=== PATIENT | female | born 1970 | race Caucasian/White ===

== ENCOUNTER 2019-04-17 05:33 | Emergency (ER) | payer BC ==
[2019-04-17] MEDS ORDERED: Ondansetron INJ* 2 MG/ML VIAL IV ONE (05:49)
[2019-04-17] MEDS ORDERED: NS 0.9% 1000 ML** 2,000 ML IV ONE (05:49)
[2019-04-17] MEDS ORDERED: Ketorolac INJ* 30 MG/ML 1 ML VIAL IV PUSH ONE (05:49)
--- NOTE | 2019-04-17 05:58 | ED ---
GI/ HPI - HPI Summary HPI Summary: 48 year old female presents with nausea vomiting diarrhea since yesterday. She states she's been having generalized abdominal pain. She did not eat anything different. She has not been able to keep any food down. No one else is sick. No previous abdominal surgeries. Admits to occasional fevers and chills. No chest pain or shortness breath. No cough. No urinary symptoms. no blood in stool. Has no medical conditions. no recent antibiotic usage. diarrhea has been improving. - History of Current Complaint Chief Complaint: EDNauseaVomitDiarrh Time Seen by Provider: 04/17/19 05:43 Stated Complaint: NAUSEA/VOMITING PER PT Hx Last Menstrual Period: 07/29/12 Pain Intensity: 8 - Allergy/Home Medications Allergies/Adverse Reactions: Allergies Allergy/AdvReac Type Severity Reaction Status Date / Time No Known Allergies Allergy Verified 04/17/19 05:34 PMH/Surg Hx/FS Hx/Imm Hx Endocrine/Hematology History: Reports: Hx Thyroid Disease - removed Denies: Hx Diabetes Cardiovascular History: Denies: Hx Congestive Heart Failure, Hx Hypertension, Hx Pacemaker/ICD, Other Cardiovascular Problems/Disorders Respiratory History: Denies: Hx Asthma, Hx Chronic Obstructive Pulmonary Disease (COPD), Other Respiratory Problems/Disorders GI History: Denies: Hx Ulcer History: Denies: Hx Renal Disease Musculoskeletal History: Denies: Hx Rheumatoid Arthritis, Hx Osteoporosis, Hx Scoliosis Sensory History: Denies: Hx Hearing Aid Neurological History: Denies: Hx Headaches, Other Neuro Impairments/Disorders Psychiatric History: Denies: Hx Panic Disorder - Cancer History Hx Chemotherapy: No Hx Radiation Therapy: No - Surgical History Surgery Procedure, Year, and Place: PARTAIL THYROIDECTOMY. VARICOSE [facility] Infectious Disease History: No Infectious Disease History: Denies: Hx Hepatitis, Hx Human Immunodeficiency Virus (HIV), Traveled Outside the [place] in Last 30 Days - Family History Known Family History: Positive: Non-Contributory - Social History Alcohol Use: Rare Substance Use Type: Reports: None Hx Tobacco Use: No Smoking Status (MU): Never Smoked Tobacco Review of Systems Positive: Fever Negative: Chest Pain Negative: Shortness Of Breath Positive: Abdominal Pain, Vomiting, Diarrhea, Nausea All Other Systems Reviewed And Are Negative: Yes Physical Exam Triage Information Reviewed: Yes Vital Signs On Initial Exam: Initial Vitals Temp Pulse Resp BP Pulse Ox 99 F 107 18 137/73 100 04/17/19 05:34 04/17/19 05:34 04/17/19 05:34 04/17/19 05:34 04/17/19 05:34 Vital Signs Reviewed: Yes Appearance: Positive: Well-Appearing Skin: Positive: Warm, Dry Head/Face: Positive: Normal Head/Face Inspection Eyes: Positive: Normal, Conjunctiva Clear ENT: Positive: Pharynx normal Respiratory/Lung Sounds: Positive: Clear to Auscultation, Breath Sounds Present Cardiovascular: Positive: Normal, RRR Abdomen Description: Positive: Soft, Other: - severe diffuse tenderness Bowel Sounds: Positive: Present Musculoskeletal: Positive: Normal Neurological: Positive: Normal Psychiatric: Positive: Normal Procedures - Sedation Patient Received Moderate/Deep Sedation with Procedure: No Diagnostics - Vital Signs Vital Signs Temp Pulse Resp BP Pulse Ox 04/17/19 05:34 99 F 107 18 137/73 100 - Laboratory Result Diagrams: 04/17/19 05:59 04/17/19 05:59 Lab Statement: Any lab studies that have been ordered have been reviewed, and results considered in the medical decision making process. - CT abd CT Interpretation Completed By: Radiologist Summary of CT Findings: IMPRESSION: SMALL AMOUNT OF ASCITES OF UNCLEAR ETIOLOGY. NO OBSTRUCTION. Re-Evaluation - Re-Evaluation First Eval Re-Evaluation Time: 06:39 Change: Improved Comment: patient still has rebound tenderness on exam so will get CT GIGU Course/Dx - Course Course Of Treatment: 48 year old female presents with nausea vomiting diarrhea since yesterday. She states she's been having generalized abdominal pain. She did not eat anything different. She has not been able to keep any food down. No one else is sick. No previous abdominal surgeries. Admits to occasional fevers and chills. No chest pain or shortness breath. No cough. No urinary symptoms. no blood in stool. Has no medical conditions. On exam has severe diffuse abdominal tenderness. wbc 18 with left shift. gave toradal and zofran and fluids and pain continues. pain is greater than what would expect with gastroenteritis so will get CT. crp normal. electrolytes normal expect magnesium 1.8. urine shows ketones and likely contaminated. CT shows ascities but no acute findings otherwise. will give zofran for nausea. told follow up with primary. patient understand and agrees with plan. - Diagnoses Differential Diagnoses - Female: Gastroenteritis (Viral), Gastroenteritis ( Bacterial), Urinary Tract Infection Provider Diagnoses: Abdominal pain, Nausea vomiting and diarrhea Discharge ED - Sign-Out/Discharge Documenting (check all that apply): Patient Departure - Discharge Plan Condition: Good Disposition: HOME Prescriptions: Ondansetron ODT TAB* [Zofran 4 MG Odt TAB*] 4 mg PO Q6H PRN #12 tab.odt PRN Reason: Nausea Patient Education Materials: Gastroenteritis (ED) Referrals: Ines Johnson MD [Primary Care Provider] - Additional Instructions: Can take Zofran every 6 hours as needed for nausea Drink small amounts of fluid as tolerated When able to eat follow BRAT diet: Bananas, rice, applesauce, toast Take ibuprofen or Tylenol for pain as needed every 6 hours Follow up with primary within 5 days Return to ED if develop any new or worsening symptoms - Billing Disposition and Condition Condition: GOOD Disposition: Home
[2019-04-17 06:09] LABS: ABS Lymphocytes 0.5 10^3/ul (1.0-4.8); ABS Monocytes 0.5 10^3/ul (0-0.8); ABS Neutrophils 17.5 10^3/ul (1.5-7.7); Hematocrit 45 % (35-47); Hemoglobin 15.3 g/dL (12.0-16.0); Lymphocyte % 2.9 %; Mean Corpuscular HGB Conc 34 g/dL (31-36); Mean Corpuscular Hemoglobin 31 pg (27-31); Mean Corpuscular Volume 91 fL (80-97); Mean Platelet Volume 9.5 fL (7.4-10.4); Platelet Count 207 10^3/uL (150-450); Red Blood Count 4.98 10^6 /uL (3.70-4.87); Red Cell Distribution Width 15 % (10-15); White Blood Count 18.6 10^3/uL (3.5-10.8)
[2019-04-17 06:45] LABS: HCG Pregnancy < 0.60 mIU/mL
[2019-04-17 06:48] LABS: ALT 11 U/L (7-52); AST 17 U/L (13-39); Albumin/Globulin Ratio 1.1 (1-3); Alkaline Phosphatase 63 U/L (34-104); Anion Gap 10 mmol/L (2-11); Blood Urea Nitrogen 16 mg/dL (6-24); CO2 Carbon Dioxide 24 mmol/L (22-32); Calcium 9.2 mg/dL (8.6-10.3); Chloride 102 mmol/L (101-111); EGFR African American 87.2 (>60); EGFR Non-African American 72.1 (>60); Globulin 3.7 g/dL (2-4); Glucose 154 mg/dL (70-100); Magnesium 1.8 mg/dL (1.9-2.7); Potassium 3.9 mmol/L (3.5-5.0); Sodium 136 mmol/L (135-145); Total Protein 7.7 g/dL (6.4-8.9)
[2019-04-17] MEDS ORDERED: Morphine 4 MG/ML VIAL (1 ml) 4 MG/ML VIAL IV ONE (07:04)
[2019-04-17 07:13] LABS: Urine Appearance Cloudy; Urine Bilirubin Negative (Negative); Urine Blood Negative (Negative); Urine Color Yellow; Urine Glucose 1+(50 mg/dL) (Negative); Urine Ketones 2+ (Negative); Urine Nitrite Negative (Negative); Urine Protein 2+(100 mg/dL) (Negative); Urine Specific Gravity 1.024 (1.010-1.030); Urine Urobilinogen Negative (Negative)
[2019-04-17 07:18] LABS: Urine Bacteria Absent (Absent); Urine Red Blood Cell Absent (Absent); Urine Squamous Epithelial Cell Present (Absent); Urine White Blood Cell Trace(0-5/hpf) (Absent)
[2019-04-17] MEDS ORDERED: Iohexol 300* (CONTRAST) 10 ML SDV IV ONE (09:04)
[2019-04-17 10:19] VITALS: BP 100/61
== END 2019-04-17 10:19 | disposition home or self-care (01) ==
LOC: ED 05:33
DX: R11.2 Nausea with vomiting, unspecified (principal); R19.7 Diarrhea, unspecified; R10.9 Unspecified abdominal pain; E03.9 Hypothyroidism, unspecified
CPT/HCPCS: 36415; 74177; 80053; 81003; 81015; 83690; 83735; 84702; 85025; 86140; 87086; 96361; 96374; 96375; 99283; J1885; J2270; J2405; Q9967